=== PATIENT | male | born 1955 | race Caucasian/White ===

== ENCOUNTER 2017-02-12 12:17 | Emergency (ER) | payer OTHER ==
--- NOTE | ~2017-02-12 | EKG ---
PATIENT: JESSE HOLT UNIT #: [id number] Ventricular Rate: 86 BPM Atrial Rate: 86 BPM P-R Interval: 144 ms QRS Duration: 90 ms Q-T Interval: 362 ms QTC Calculation(Bezet): 433 ms P [place]: 70 degrees Calculated R [place]: 44 degrees Calculated T [place]: 48 degrees Diagnosis Line: Normal sinus rhythm Diagnosis Line: Possible Lateral infarct , age undetermined Diagnosis Line: Abnormal ECG Diagnosis Line: When compared with ECG of 10-JUN-2009 11:44, Diagnosis Line: No significant change was found Diagnosis Line: Confirmed by CRISS SALINAS MD ([id number]) on Diagnosis Line: 02/13/2017 2:42:40 PM INTERPRETING MD: RITA ZAMBRANO
--- NOTE | ~2017-02-12 | CR72 ---
[facility]. [facility] A Service of [facility] & [facility] RADIOLOGY TEXT RESULTS PATIENT: JESSE HOLT LOCATION: SED : 53 UNIT #: [id number] AGE: [address]: Tawnya Valerio MD SEX: M ORDER DR: [id number] [place] [id number] MR#: [id number] Acc #: [id number] NAME: JESSE HOLT. : 1955 SEX: M STUDY DATE/TIME: 02/12/2017 12:50 UNIT: SED ROOM: STUDY DESCRIPTION: CR Chest Single View Portable Attending Physician: Tawnya Valerio M.D. Ordering Physician: Tawnya Valerio M.D. Primary Care Physician: Collins Tierney Jr., M.D. MEDICAL IMAGING REPORT This report is preliminary unless electronic signature is present. EXAM AP portable chest DATE 02/12/2017 HISTORY Left shoulder pain and diaphoresis since 10:00 last night COMPARISON AP portable chest 06/10/2009 FINDINGS A single AP portable view of the chest shows both lungs to be clear. The heart is normal in size. The mediastinal contour is normal. No significant bone abnormalities are seen. IMPRESSION Normal portable chest. Dictated by... Julissa Nichols M.D. THIS IS AN ELECTRONICALLY VERIFIED REPORT Julissa Nichols M.D. at 02/13/2017 8:56 AM [facility]/rabia TD: 02/12/2017 16:32 JOB #: [id number] MEDICAL IMAGING REPORT Page 1 of 1
[~2017-02-12 12:17] MED LIST: CLARITIN10 MG PO; LORATADINE PO; LORTAB 10/500 T1 TAB PO; MEDROL PO; MOBIC PO; NASAL SPRAY; SKELAXIN PO
[2017-02-12 13:02] LABS: POC - CKMB <1.0 ng/mL (0.0-7.9)
[2017-02-12 13:03] LABS: POC - TROPONIN <0.05 ng/mL (<=0.05)
[2017-02-12 13:05] LABS: BASOPHIL# 0.1 X10e3 (0-0.3); EOSINOPHIL# 0.2 X10e3 (0-0.7); EOSINOPHIL% 2.1 % (0.0-7.0); HEMATOCRIT 43.7 % (38.0-50.0); HEMOGLOBIN 15.2 gm/dL (13.0-16.0); LYMPHOCYTE# 1.8 X10e3 (1.0-3.5); LYMPHOCYTE% 20.9 % (17.0-45.0); MEAN CELL VOLUME 97.8 FL (83-96); MEAN CORPUSCULAR HEMOGLOBIN 34.1 PG (28-34); MEAN CORPUSCULAR HGB CONC 34.9 g/dL (30-36); MEAN PLATELET VOLUME 7.9 FL (6.5-11.5); MONOCYTE# 0.8 X10e3 (0-1.0); MONOCYTE% 9.9 % (3.0-12.0); NEUTROPHIL# 5.5 X10e3 (1.5-7.1); NEUTROPHIL% 66.1 % (40-75); PLATELET COUNT 209 X10e3 (140-420); RED BLOOD COUNT 4.46 X10e (3.90-5.60); RED CELL DISTRIBUTION WIDTH 12.5 % (11.0-15.5); WHITE BLOOD COUNT 8.4 X10e3 (4.0-10.5)
[2017-02-12 13:08] LABS: DIFF IND NO
[2017-02-12 13:14] LABS: ALBUMIN SERUM 4.4 g/dL (3.5-5.0); ALKALINE PHOSPHATASE 36 U/L (32-92); ALT (SGPT) 24 U/L (10-40); AST (SGOT) 22 U/L (10-42); BILIRUBIN, DIRECT 0.1 mg/dL (0.0-0.2); BILIRUBIN,INDIRECT 0.7 mg/dL (0.0-0.9); BILIRUBIN,TOTAL 0.8 mg/dL (0.2-2.0); BLOOD UREA NITROGEN 12 mg/dL (9-23); CALCIUM SERUM 8.9 mg/dL (8.4-10.2); CARBON DIOXIDE 25 mmol/L (22-31); CHLORIDE 101 mmol/L (100-111); CREATININE SERUM 0.8 mg/dL (0.6-1.4); GLOM FILT RATE Estimated 95.8 mL/min (>60); GLUCOSE FASTING 103 mg/dL (70-110); POTASSIUM 4.1 mmol/L (3.5-5.1); PROTEIN TOTAL SERUM 7.2 g/dL (6.0-8.3); SODIUM 136 mmol/L (135-145)
[2017-02-12 13:18] LABS: ALCOHOL BLOOD <5 mg/dL (0)
[2017-02-12 14:30] LABS: POC - CKMB <1.0 ng/mL (0.0-7.9); POC - TROPONIN <0.05 ng/mL (<=0.05)
== END 2017-02-12 14:49 | disposition home or self-care (01) ==
LOC: SED 12:17
PROVIDERS: Student in an Organized Health Care Education/Training Program
DX: M79.602 Pain in left arm (principal); I10 Essential (primary) hypertension; F17.200 Nicotine dependence, unspecified, uncomplicated; Z79.899 Other long term (current) drug therapy
CPT/HCPCS: 36415; 71010; 80048; 80076; 82553; 84484; 85025; 93005; 99284; G0480